=== PATIENT | female | born 1965 | race Caucasian/White ===

== ENCOUNTER 2017-02-03 13:25 | Emergency (ER) | payer OTHER ==
[~2017-02-03] VITALS: Ht 172.7 cm; Wt 77.1 kg
--- NOTE | 2017-02-03 14:41 | ED DYSPNEA/ASTHMA COMPLAINT ---
History of Present Illness General Chief Complaint: Wheezing/Asthma Stated Complaint: "IM HAVING HARD TIME BREATHING" SAT 94 P120 Source: patient Exam Limitations: no limitations Vital Signs & Intake/Output Vital Signs & Intake/Output Vital Signs Date Time Temp Pulse Resp B/P Pulse O2 O2 Flow FiO2 Ox Delivery Rate 02/03 1606 96.9 92 18 118/82 94 Room Air 02/03 1519 97 / 1446 96 Room Air 02/03 1335 98.8 112 18 119/86 91 Room Air Allergies Coded Allergies: fish derived (UNKNOWN 02/03/17) penicillin V (UNKNOWN 02/03/17) Reconcile Medications Albuterol Sulfate (Ventolin Hfa) 90 MCG HFA.AER.AD 2 PUF INH Q4-6 PRN PRN WHEEZING/SHORTNESS OF BREATH Benzonatate 200 MG CAPSULE 1 CAP PO TID PRN cough Methadone HCl 10 MG/ML ORAL.CONC 50 MG PO DAILY MAINTENCE (Reported) Methylprednisolone. (Medrol) 4 MG TAB.DS.PK 1 DP PO AD breathing Triage Note: C/O DIFFICULTY BREATHING SINCE FRIDAY. PRODUCTIVE COUGH- YELLOW SPUTUM. PT SHE HAD CHILLS ON AND OFF Triage Nurses Notes Reviewed? yes HPI: Patient is a 51-year-old female presents complaining of sinus pressure, postnasal drip, cough with sputum production and shortness of breath. Symptoms onset approximately 5 days ago. Symptoms currently moderate. Patient has been using her albuterol inhaler with mild improvement. Also taking DayQuil with mild improvement. Intermittent subjective fevers. Patient denies sick contacts , recent travel, chest pain, abdominal pain. (HAYDEN PENALOZA) Past History Travel History Traveled to [place] past 21 day No Medical History Any Pertinent Medical History? see below for history Respiratory: asthma Psychiatric: opioid dependence (on methadone) Surgical History Surgical History: non-contributory Psychosocial History What is your primary language Czech Tobacco Use: Current Not Daily Daily Tobacco Use Amount/Type: =< 4 Cigarettes daily Illicit Drug Use: history of opiate abuse on methadone Family History Hx Contributory? No (HAYDEN PENALOZA) Review of Systems Review of Systems Constitutional: Reports: fever, malaise. EENTM: Reports: nasal congestion. Denies: throat pain. Respiratory: Reports: see HPI. Cardiovascular: Denies: chest pain. GI: Denies: abdominal pain, nausea, vomiting. Genitourinary: Reports: no symptoms. Musculoskeletal: Reports: no symptoms. Skin: Reports: no symptoms. Neurological/Psychological: Reports: no symptoms. Hematologic/Endocrine: Reports: no symptoms. Immunologic/Allergic: Reports: no symptoms. (HAYDEN PENALOZA) Physical Exam Physical Exam General Appearance: well developed/nourished, alert, awake Head: atraumatic, normal appearance, mild bilateral maxillary sinus tenderness. Eyes: Bilateral: normal appearance, PERRL, EOMI. Ears, Nose, Throat: normal pharynx Neck: normal inspection, supple, full range of motion Respiratory: diffuse moderate expiratory and expiratory wheezing and rhonchi. Cardiovascular: regular rate/rhythm, no appreciable murmur Extremities: normal inspection, normal capillary refill, normal range of motion Neurologic/Psych: no motor/sensory deficits, awake, alert, oriented x 3, normal gait, normal mood/affect Skin: intact, normal color, warm/dry Lymphatic: no anterior cervical svetlana Core Measures ACS in differential dx? No Severe Sepsis Present: No Septic Shock Present: No (HAYDEN PENALOZA) Progress Differential Diagnosis: asthma, bronchitis, pneumonia Plan of Care: Orders Procedure Date/time Status XRY-CHEST XRAY, PA AND LATERAL 02/03 1458 Active Current Medications Sig/Nitish Start time Last Medication Dose Stop Time Status Admin Albuterol Sulfate 3 ML ONCE ONE 02/03 1500 UNVr (Proventil) 02/03 1501 Ipratropium Henry 2.5 ML ONCE ONE 02/03 1500 UNVr (Atrovent) 02/03 1501 Prednisone 60 MG ONCE ONE 02/03 1500 UNVr / 1501 02/03/2017 3:46:28 PM: Results of chest x-ray discussed with patient. Patient afebrile, nontoxic-appearing, appears stable for discharge. Patient instructed to follow-up with her primary doctor if no improvement within 1-2 days. (HAYDEN PENALOZA) Diagnostic Imaging: Viewed by Me: Radiology Read. Discussed w/RAD: Radiology Read. CXR Impression: PATIENT: TEREZA ARCHER PRESENT AGE: 51 PATIENT ACCOUNT NO: [id number] : 67 LOCATION: [facility] ORDERING PHYSICIAN: HAYDEN ALMEIDA SERVICE DATE: 02/03/17 EXAM TYPE: RAD - XRY-CHEST XRAY, PA AND LATERAL EXAMINATION: XR CHEST CLINICAL INFORMATION: 51-year-old patient with productive cough. COMPARISON: Chest x-ray on 09/28/2007. TECHNIQUE: PA and lateral erect views of the chest were obtained. FINDINGS: No significant abnormality is noted involving the heart, lungs, mediastinum, bony thorax or soft tissues. IMPRESSION: No pneumonia. 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 < Electronically signed in Other Vendor System> SIGNED BY: NELDA TRISTAN MD 02/03/17 1538 Initial ED EKG: none (HAYDEN PENALOZA) Departure Departure Time of Disposition: 1547 Disposition: HOME OR SELF CARE Condition: Stable Clinical Impression Primary Impression: Bronchitis Referrals: BRITNEY GREGG,STEPHIE Melvin (PCP/Family) Additional Instructions: Drink plenty of fluids and rest. Use the albuterol inhaler as directed. Return to the emergency department if breathing worsening, unable stay hydrated, or worsening of symptoms. Departure Forms: Customer Survey General Discharge Information Prescriptions: Current Visit Scripts Methylprednisolone. (Medrol) 1 DP PO AD #1 DP Benzonatate 1 CAP PO TID PRN cough #30 CAP Albuterol Sulfate (Ventolin Hfa) 2 PUF INH Q4-6 PRN PRN WHEEZING/SHORTNESS OF BREATH #1 INHAL (HAYDEN PENALOZA) PA/CLERICAL ASSISTANT Co-Sign Statement Statement: ED Attending supervision documentation- [] I saw and evaluated the patient. I have also reviewed all the pertinent lab results and diagnostic results. I agree with the findings and the plan of care as documented in the PA's/CLERICAL ASSISTANT's documentation. [X] I have reviewed the ED Record and agree with the PA's/CLERICAL ASSISTANT's documentation. [] Additions or exceptions (if any) to the PAs/CLERICAL ASSISTANT's note and plan are summarized below: [] (ELVIRA MOORE DO) Critical Care Note Critical Care Note Critical Care Time: non-applicable (HAYDEN PENALOZA)
[2017-02-03] MEDS ORDERED: METHADONE10 MG/1 M2 PO (14:51)
--- NOTE | 2017-02-03 15:35 | RADIOLOGY REPORT ---
EXAMINATION: XR CHEST CLINICAL INFORMATION: 51-year-old patient with productive cough. COMPARISON: Chest x-ray on 09/28/2007. TECHNIQUE: PA and lateral erect views of the chest were obtained. FINDINGS: No significant abnormality is noted involving the heart, lungs, mediastinum, bony thorax or soft tissues. IMPRESSION: No pneumonia.
[2017-02-03] MEDS ORDERED: MEDROL4 M2 PO (15:50)
[2017-02-03] MEDS ORDERED: VENTOLIN HFA18 GM INH (15:50)
[2017-02-03] MEDS ORDERED: BENZONATATE200 M1 PO (15:50)
[2017-02-03 16:06] VITALS: BP 118/82
== END 2017-02-03 16:06 ==
LOC: ERH 13:25
DX: J40 Bronchitis, not specified as acute or chronic (principal); Z72.0 Tobacco use
CPT/HCPCS: 1263

== ENCOUNTER 2018-04-06 04:22 | Emergency (ER) | payer OTHER ==
[~2018-04-06 04:22] MED LIST: BENZONATATE200 M1 PO; MEDROL4 M2 PO; METHADONE10 MG/1 M2 PO; VENTOLIN HFA18 GM INH
[2018-04-06 04:30] VITALS: BP 154/95
--- NOTE | 2018-04-06 04:32 | ED DYSPNEA/ASTHMA COMPLAINT ---
History of Present Illness General Chief Complaint: Wheezing/Asthma Stated Complaint: "ASTHMA ATTACK; SPO2 94%" Source: patient Exam Limitations: no limitations Vital Signs & Intake/Output Vital Signs & Intake/Output Vital Signs Date Time Temp Pulse Resp B/P B/P Pulse O2 O2 Flow FiO2 Mean Ox Delivery Rate 04/06 0430 98.0 92 24 154/95 94 Room Air Allergies Coded Allergies: fish derived (UNKNOWN 02/03/17) penicillin V (UNKNOWN 02/03/17) Reconcile Medications Albuterol Sulfate (Ventolin Hfa) 90 MCG HFA.AER.AD 2 PUF INH Q4-6 PRN PRN WHEEZING/COUGH Albuterol Sulfate (Ventolin Hfa) 90 MCG HFA.AER.AD 2 PUF INH Q4-6 PRN PRN WHEEZING/SHORTNESS OF BREATH Azithromycin (Zithromax) 250 MG TABLET 1 DP PO AD BRONCHITIS FIRST DOSE OF Z-PACK GIVEN IN ed Benzonatate (Tessalon Perle) 100 MG CAPSULE 1 CAP PO TID PRN COUGH Benzonatate 200 MG CAPSULE 1 CAP PO TID PRN cough Methadone HCl 10 MG/ML ORAL.CONC 50 MG PO DAILY MAINTENCE (Reported) Methylprednisolone. (Medrol) 4 MG TAB.DS.PK 1 DP PO AD breathing Prednisone 50 MG TABLET 1 TAB PO DAILY BRONCHITIS Triage Note: PER PT SOB ALL DAY HX OF ASTHMA, REPORTS NONPRODUCTIVE COUGH +SMOKER BUT NONE TODAY Triage Nurses Notes Reviewed? yes Onset: Gradual Duration: day(s):, waxing and waning Timing: recent history Severity: moderate Activities at Onset: none Prior Episodes/Possible Cause: occasional episodes Associated Symptoms: cough, wheezing HPI: 52-year-old woman history of asthma current cigarette smoker presents with 7 days of cough and wheeze. She notes that the past 2 days her wheezing has gotten worse she feels like there is phlegm in her chest. Tonight he grew worse. She has no fever chills chest pain lower extremity swelling. She is otherwise well and has no other concerns. Past History Travel History Traveled to [place] past 21 day No Medical History Any Pertinent Medical History? 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 No Review of Systems Review of Systems Constitutional: Reports: no symptoms. EENTM: Reports: no symptoms. Respiratory: Reports: no symptoms. Cardiovascular: Reports: no symptoms. GI: Reports: no symptoms. Genitourinary: Reports: no symptoms. Musculoskeletal: Reports: no symptoms. Skin: Reports: no symptoms. Neurological/Psychological: Reports: no symptoms. Hematologic/Endocrine: Reports: no symptoms. Immunologic/Allergic: Reports: no symptoms. All Other Systems: Reviewed and Negative Physical Exam Physical Exam Respiratory: see below Comments: Review of Systems - except as otherwise noted in HPI All Other Systems: Reviewed and Negative Physical Exam Physical Exam General Appearance: well developed/nourished, no apparent distress Head: atraumatic, normal appearance Eyes: Bilateral: normal appearance. Ears, Nose, Throat: normal pharynx, normal ENT inspection Neck: normal inspection, supple, full range of motion Respiratory: normal breath sounds, chest non-tender, no respiratory distress, quiet respiration, bilateral wheezes with slight rhonchi and slightly prolonged expiratory phase Cardiovascular: regular rate/rhythm Gastrointestinal: normal bowel sounds, soft, non-tender, no organomegaly Back: normal inspection, normal range of motion Extremities: normal inspection, normal capillary refill, normal range of motion, no edema Neurologic/Psych: no motor/sensory deficits, awake, alert, oriented x 3 Skin: intact, normal color, warm/dry Core Measures ACS in differential dx? No CVA/TIA Diagnosis No Sepsis Present: No Sepsis Focused Exam Completed? No Progress Differential Diagnosis: asthma, bronchitis, COPD Plan of Care: Current Medications Sig/Nitish Start time Last Medication Dose Stop Time Status Admin Albuterol Sulfate 3 ML ONCE ONE 04/06 445 AC (Proventil) 04/06 446 Azithromycin 500 MG ONCE ONE 04/06 445 UNVr (Zithromax) 04/06 446 Ipratropium Adams 2.5 ML ONCE ONE 04/06 445 AC (Atrovent) 04/06 446 Prednisone 60 MG ONCE ONE 04/06 445 UNVr 04/06 446 Initial ED EKG: none Departure Departure Disposition: HOME OR SELF CARE Condition: Stable Clinical Impression Primary Impression: Bronchitis Secondary Impressions: Asthma Referrals: Jeremi GREGG,Nirmal Melvin (PCP/Family) Departure Forms: Customer Survey General Discharge Information Prescriptions: Current Visit Scripts Prednisone 1 TAB PO DAILY #4 TAB Azithromycin (Zithromax) 1 DP PO AD #4 TAB FIRST DOSE OF Z-PACK GIVEN IN ed Albuterol Sulfate (Ventolin Hfa) 2 PUF INH Q4-6 PRN PRN WHEEZING/COUGH #1 INHAL Ref 1 Benzonatate (Tessalon Perle) 1 CAP PO TID PRN COUGH #30 CAP Comments 6\\4\\18, 5:25AM... feeling better after supportive medications... encouraged close follow up... wrote for abx, steroids, albuterol. encouraged smoking cessation. Critical Care Note Critical Care Note Critical Care Time: non-applicable
[2018-04-06] MEDS ORDERED: PREDNISONE50 M1 PO (04:40)
[2018-04-06] MEDS ORDERED: TESSALON PERLE100 M1 PO (04:40)
[2018-04-06] MEDS ORDERED: VENTOLIN HFA18 GM INH (04:40)
[2018-04-06] MEDS ORDERED: ZITHROMAX250 M2 PO (04:40)
== END 2018-04-06 05:32 ==
LOC: ERH 04:22
DX: J40 Bronchitis, not specified as acute or chronic (principal); J45.909 Unspecified asthma, uncomplicated; F17.210 Nicotine dependence, cigarettes, uncomplicated
CPT/HCPCS: 1263; J0456

== ENCOUNTER 2018-04-10 15:22 | Emergency (ER) | payer OTHER ==
[~2018-04-10] VITALS: Ht 172.7 cm; Wt 68.0 kg
[~2018-04-10 15:22] MED LIST changes: +PREDNISONE50 M1 PO; +TESSALON PERLE100 M1 PO; +ZITHROMAX250 M2 PO
--- NOTE | 2018-04-10 15:43 | ED DYSPNEA/ASTHMA COMPLAINT ---
History of Present Illness General Chief Complaint: Dyspnea (COPD, CHF, Other) Stated Complaint: SOB Source: patient, old records Exam Limitations: no limitations Vital Signs & Intake/Output Vital Signs & Intake/Output Vital Signs Date Time Temp Pulse Resp B/P B/P Pulse O2 O2 Flow FiO2 Mean Ox Delivery Rate 04/10 1916 98.9 87 20 140/79 93 Room Air 04/10 1628 Room Air 04/10 1544 89 04/10 1525 22 89 Room Air Room Air 04/10 1524 97.9 103 18 157/98 90 Room Air Allergies Coded Allergies: penicillin V (UNKNOWN 02/03/17) shellfish derived (UNKNOWN 04/10/18) Reconcile Medications Albuterol Sulfate (Proventil Hfa) 90 MCG HFA.AER.AD 2 PUF INH Q4 COPD Prednisone 20 MG TABLET 2 TAB PO DAILY COPD Triage Note: 52 YO FEMALE TO TRIAGE C/O SOB. STATES WAS HERE ON FRIDAY AND WAS GIVEN PREDNISONE AND ANTITIOICS. STATES SHE FEELS NO BETTER. PT SOB IN TRIAGE, RA SATS 90%. PT ABLE TO SPEAK FULL, CLEAR SENTANCES WITHOUT DIFFICULTIES. PA IN TRIAGE FOR EVAL Triage Nurses Notes Reviewed? yes HPI: 52F PMH asthma, active smoker presents with shortness of breath, dyspnea on exertion, fatigue, and wheezing. Came to ER for an asthma exacerbation 4 days ago, given nebulizer treatment and discharged on Prednisone and Azithromycin, which she has taken. Since then, she is still very short of breath in the mornings, and becomes short of breath with minimal exertion. She denies chest pain, palpitations, lightheadedness. She has no personal or family cardiac history. Never been intubated, speaking in full sentences though becomes visibly dyspneic when speaking uninterrupted for some time. Past History Travel History Traveled to [place] past 21 day No Medical History Any Pertinent Medical History? 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 No Review of Systems Review of Systems Constitutional: Reports: no symptoms. EENTM: Reports: no symptoms. Respiratory: Reports: see HPI. Cardiovascular: Reports: no symptoms. GI: Reports: no symptoms. Genitourinary: Reports: no symptoms. Musculoskeletal: Reports: no symptoms. Skin: Reports: no symptoms. Neurological/Psychological: Reports: no symptoms. Hematologic/Endocrine: Reports: no symptoms. Immunologic/Allergic: Reports: no symptoms. All Other Systems: Reviewed and Negative Physical Exam Physical Exam General Appearance: well developed/nourished, no apparent distress Head: atraumatic, normal appearance Eyes: Bilateral: normal appearance. Ears, Nose, Throat: hearing grossly normal Neck: normal inspection, supple, full range of motion Respiratory: no respiratory distress, wheezing Cardiovascular: regular rate/rhythm Gastrointestinal: soft, non-tender Extremities: normal inspection, normal range of motion Neurologic/Psych: awake, alert, oriented x 3, normal mood/affect Skin: intact, normal color, warm/dry Core Measures ACS in differential dx? Yes CVA/TIA Diagnosis No Sepsis Present: No Sepsis Focused Exam Completed? No Progress Differential Diagnosis: asthma, AMI, bronchitis, CHF, COPD, pneumonia Plan of Care: Orders Procedure Date/time Status Regular Diet 04/11 B Active TROPONIN LEVEL 04/10 1830 Complete EKG 04/10 1830 Active TROPONIN LEVEL 04/10 1526 Complete D-DIMER 04/10 1526 Complete COMPREHENSIVE METABOLIC PANEL 04/10 1526 Complete CBC WITHOUT DIFFERENTIAL 04/10 1526 Complete EKG 04/10 1526 Active Laboratory Tests 04/10/18 1854: Troponin I < 0.01 04/10/18 1548: Anion Gap 13, Estimated GFR > 60, BUN/Creatinine Ratio 21.3, Glucose 109 H, Calcium 9.8, Total Bilirubin 0.5, AST 24, ALT 22, Alkaline Phosphatase 121, Troponin I < 0.01, Total Protein 7.7, Albumin 4.4, Globulin 3.3, Albumin/ Globulin Ratio 1.3, D-Dimer High Sensitivty < 200, CBC w Diff NO MAN DIFF REQ, RBC 4.90, MCV 84.9, MCH 28.4, MCHC 33.5, RDW 14.0, MPV 5.9 L, Gran % 91.4 H, Lymphocytes % 7.2 L, Monocytes % 1.4 L, Eosinophils % 0, Basophils % 0, Absolute Granulocytes 6.7 H, Absolute Lymphocytes 0.5 L, Absolute Monocytes 0.1, Absolute Eosinophils 0, Absolute Basophils 0 Low suspicion for ACS at this time. Patient is markedly improved and asymptomatic. Will discharge On Prednisone. Strongly advised admission however patient adamantly refused. She understands that she risks worsening breathing, respiratory failure, PR, ACS, . She will return to ER if her symptoms worsen. Initial ED EKG: NSR, TWI in anterior leads Repeat EKG: unchanged Departure Departure Disposition: HOME OR SELF CARE Condition: Stable Clinical Impression Primary Impression: COPD exacerbation Referrals: Jeremi GREGG,Nirmal Melvin (PCP/Family) Additional Instructions: Follow up with your PCP. Continue Prednisone. Return to ER if new or worsening symptoms. Departure Forms: Customer Survey General Discharge Information Prescriptions: Current Visit Scripts Prednisone 2 TAB PO DAILY #10 TAB Albuterol Sulfate (Proventil Hfa) 2 PUF INH Q4 #1 INHAL Critical Care Note Critical Care Note Critical Care Time: non-applicable
[2018-04-10 15:59] LABS: ABSOLUTE BASOPHIL COUNT 0 /CUMM (0.0-0.2); ABSOLUTE EOSINOPHIL COUNT 0 /CUMM (0.0-0.7); ABSOLUTE GRANULOCYTE CT 6.7 /CUMM (1.4-6.5); ABSOLUTE LYMPH COUNT 0.5 /CUMM (1.2-3.4); ABSOLUTE MONOCYTE COUNT 0.1 /CUMM (0.10-0.60); BASOPHIL % 0 % (0.0-2.0); EOSINOPHIL % 0 % (0-5); HEMATOCRIT 41.6 % (37-47); MEAN CORPUSCULAR HGB 28.4 PG (27.0-31.0); MEAN CORPUSCULAR HGB CONC 33.5 G/DL (33.0-37.0); MEAN CORPUSCULAR VOLUME 84.9 FL (81.0-99.0); MEAN PLATELET VOLUME 5.9 FL (7.4-10.4); PLATELET COUNT 248 /CUMM (130-400); WHITE BLOOD CELL COUNT 7.3 /CUMM (4.8-10.8)
--- NOTE | 2018-04-10 16:15 | RADIOLOGY REPORT ---
EXAMINATION: XR CHEST CLINICAL INFORMATION: Shortness of breath. COMPARISON: Chest x-ray 02/03/2017 TECHNIQUE: 2 views of the chest were obtained. FINDINGS: No significant abnormality is noted involving the heart, lungs, mediastinum, bony thorax or soft tissues. IMPRESSION: Unremarkable examination.
[2018-04-10 16:20] LABS: GRANULOCYTE % 91.4 % (42.2-75.2)
[2018-04-10] MEDS ORDERED: PROVENTIL HFA6.7 GM INH (19:13)
[2018-04-10] MEDS ORDERED: PREDNISONE20 M1 PO (19:13)
[2018-04-10 19:16] VITALS: BP 140/79
== END 2018-04-10 20:01 ==
LOC: ERH 15:22
PROVIDERS: Physician Assistant Medical
DX: J44.1 Chronic obstructive pulmonary disease with (acute) exacerbation (principal); F17.210 Nicotine dependence, cigarettes, uncomplicated
CPT/HCPCS: 1263; 1395; 71046; 93005; 93010; J2930